=== PATIENT | female | born 1965 ===

== ENCOUNTER 2018-06-15 16:00 | Outpatient (CLI) | payer OTHER | END 2018-06-15 16:01 | disposition home or self-care (01) | LOC: SLEEPLAB 16:00 | PROVIDERS: ATTEND Nurse Practitioner Family | DX: G47.33 Obstructive sleep apnea (adult) (pediatric) (principal); R53.83 Other fatigue; I10 Essential (primary) hypertension | CPT/HCPCS: 95806 ==